=== PATIENT | male | born 1990 | race Caucasian/White ===

== ENCOUNTER 2017-10-01 06:46 | Observation (INO) | payer OTHER ==
[2017-10-01] MEDS ORDERED: AMPICILLIN/SULBACTAM 3 GM in SODIUM CHLORIDE 0.9% MINIBAG 100 ML IV ONE (06:59)
[2017-10-01] MEDS ORDERED: LACTATED RINGERS 1,000 ML IV ONE ×3 (07:27→09:18)
[2017-10-01] MEDS ORDERED: BUPIVACAINE 0.5% PF 10 ML VIAL ONE (07:54)
[2017-10-01] MEDS ORDERED: BUPIVACAINE 0.5% PF 10 ML VIAL IM ONE (08:30)
[2017-10-01] MEDS ORDERED: fentaNYL 250 MCG/5 ML VIAL IVP ONE (08:45)
[2017-10-01] MEDS ORDERED: NEOSTIGMINE 1 MG/1 ML 10 ML MDV IVP ONE (08:45)
[2017-10-01] MEDS ORDERED: MIDAZOLAM 2 MG/2 ML VIAL IVP ONE (08:45)
[2017-10-01] MEDS ORDERED: KETOROLAC 30 MG/ML VIAL IVP ONE (08:45)
[2017-10-01] MEDS ORDERED: PROPOFOL 200 MG/20 ML VIAL IVP ONE (08:45)
[2017-10-01] MEDS ORDERED: ROCURONIUM 50 MG/5 ML VIAL IVP ONE (08:45)
[2017-10-01] MEDS ORDERED: DEXAMETHASONE 4 MG/ML VIAL IVP ONE (08:45)
[2017-10-01] MEDS ORDERED: GLYCOPYRROLATE 1 MG/5 ML VIAL IVP ONE (08:45)
[2017-10-01] MEDS ORDERED: ACETAMINOPHEN 1,000 MG/100 ML 100 ML IV ONE (08:45)
[2017-10-01] MEDS ORDERED: ONDANSETRON 4 MG/2 ML VIAL IVP ONE (08:45)
[2017-10-01] MEDS ORDERED: oxyCOD/ACETAMIN 5 MG/325 MG TABLET PO PRN ×2 (10:05→10:07)
[2017-10-01] MEDS ORDERED: SODIUM CHLORIDE FLUSH 0.9% 10 ML SYRINGE IVP PRN (10:05)
[2017-10-01] MEDS ORDERED: HYDROmorphone 1 MG/ML CARPUJECT IVP PRN ×2 (10:08)
[2017-10-01] MEDS: ceFAZolin 1 GM in SODIUM CHLORIDE 0.9% MINIBAG 100 ML IV SCH ×2 (12:29→19:38)
[2017-10-01] MEDS: SODIUM CHLORIDE FLUSH 0.9% 10 ML SYRINGE IVP SCH (19:39)
[2017-10-02] MEDS: SODIUM CHLORIDE FLUSH 0.9% 10 ML SYRINGE IVP SCH ×2 (00:57→10:36)
[2017-10-02] MEDS: ceFAZolin 1 GM in SODIUM CHLORIDE 0.9% MINIBAG 100 ML IV SCH ×2 (02:57→10:37)
--- NOTE | 2017-10-02 12:04 | Discharge Plan ---
Discharge Plan Disposition: 01 Home, Self Care Condition: Stable Diet: Regular Activity Restrictions: Activity as Tolerated Shower Restrictions: Yes (Do not get vac dressing wet. Sponge bathe only) Driving Restrictions: Yes (Not while on narcotics) Instruction Topics: Closure Wound Vacuum Assisted Follow-Up Care: [facility] - [place]ound/Ostomy (Call Dr. Cooper's office Wednesday to arrange vac changes with [facility]) No Smoking: If you smoke, Please STOP! Call for help. Follow-up with: FAIZAN JJ [Primary Care Provider] - Oliver Cooper MD [Provider Admit Priv/Credential] - 1 Week
--- NOTE | 2017-10-02 12:09 | DISCHARGE SUMMARY ---
Discharge Summary Admit Date: 10/01/17 Discharge Date: 10/02/17 Code Status: Attempt Resuscitation Condition at Discharge: Stable Discharge Disposition: 01 Home, Self Care - DIAGNOSES Admission Diagnoses: pilonidal cyst Discharge Diagnoses with Status of Each Condition: pilonidal cyst - HOSPITAL COURSE Hospital Course: This is a 27 year old male who under went a pilonidal cyst excision by Dr. Cooper on October 01. A VAC dressing was placed post operatively and the patient remained in the hospital overnight for wound monitoring. The following day a home VAC was placed on the patient and he was stable for discharge home with a home wound vac. He will Follow up with Dr. Cooper next week for wound check. He will call the [facility] [place] clinic Wednesday to arrange for VAC dressing changes. He was provided with percocet prescriptions. He was tolerating a regular diet with his pain well controlled upon discharge. - ALLERGIES Allergies/Adverse Reactions: Allergies Allergy/AdvReac Type Severity Reaction Status Date / Time No Known Drug Allergies Allergy Verified 10/01/17 13:52 - MEDICATIONS Home Medications: Ambulatory Orders Medication Instructions Recorded Confirmed No Known Home Medications [No 10/01/17 10/01/17 Known Home Medications]
[2017-10-02 12:24] VITALS: BP 141/79
--- NOTE | 2017-10-11 00:50 | OPERATIVE REPORT ---
DATE OF SERVICE: 10/01/2017 Physician: Oliver Cooper MD PREOPERATIVE DIAGNOSIS: Pilonidal fistula disease. POSTOPERATIVE DIAGNOSIS: Pilonidal fistula disease. NAME OF PROCEDURE: Excision of complex pilonidal fistula disease. SURGEON: Oliver Cooper MD ANESTHESIA: General. INDICATIONS FOR PROCEDURE: The patient is a 27-year-old male who presents with significant [TIME: 00:35] pilonidal cyst disease. He had an area previously incised and drained in the superior portion of his patricia cleft. On exam, he has his pits located in the inferior portion of the cleft. He has elected to have this excised with possible closure versus marsupialization. FINDINGS AT SURGERY: The patient had extensive pilonidal fistula disease. This area was excised for approximately 14 cm from the inferior portion to the superior portion. The entire area of pilonidal disease was excised. The inferior 2/3 of the wound was closed primarily with the superior portion left open due to the large area excised and not being able to close it. A wound VAC was placed. PROCEDURE: After informed consent was obtained, patient was taken to the operating room, placed in supine position. General endotracheal anesthesia was administered. The patient was then placed in a prone position. His buttock region bilaterally was then prepped and draped in usual sterile fashion. The area to be excised was then marked on the skin using a marker. This included the pits in the inferior portion of the cleft up to the superior portion that had been previously incised and drained. There is fistula disease between these 2 points. An elliptical incision was then made in the skin using a scalpel. It was carried down to the subcutaneous tissue using electrocautery. Next, the pilonidal cyst disease was then excised from the surrounding structures to include it completely. The specimen was then removed. In the superior portion, there was about a 6 cm gap in the skin. Because of this, this area could not be closed, even with undermining the subcutaneous tissue. In the inferior portion, the subcutaneous tissue was then undermined in order to bring the skin edges together without tension. The wound was then irrigated and hemostasis was obtained using electrocautery. Subcutaneous tissue in the lower portion of the wound was then approximated using interrupted 3-0 Vicryl suture. The skin incision was closed using interrupted 4-0 nylon vertical mattress sutures. This was done up to about 2/3 of the wound. In the superior portion of the wound, the wound VAC was then placed, which covered the closure inferiorly. The patient was then placed in a supine position, awakened, extubated, and taken from the operating room in stable condition. ESTIMATED BLOOD LOSS: Less than 25 mL COMPLICATIONS: None. CONDITION OF THE PATIENT AT THE END OF THE PROCEDURE: Stable. ESTIMATED BLOOD LOSS: Pilonidal cyst disease. DRAINS OR PACKS: Wound VAC was placed in the wound that had been left open. CLASSIFICATION OF WOUND: Clean/contaminated. TD: 10/11/2017 00:50
== END 2017-10-02 13:06 | disposition home or self-care (01) ==
LOC: SDS 06:46 → OBS 09:35
PROVIDERS: ADMIT Surgery; ATTEND Surgery
PROC: 0JB90ZZ Excision of Buttock Subcutaneous Tissue and Fascia, Open Approach (ICD-10-PCS; principal; 2017-10-01 08:00)
DX: L05.02 Pilonidal sinus with abscess (principal); F17.220 Nicotine dependence, chewing tobacco, uncomplicated
CPT/HCPCS: 11772; G0378; J0131; J3010; J7120; 88304